=== PATIENT | male | born 1985 | race Caucasian/White ===

== ENCOUNTER 2022-05-06 10:48 | Outpatient (CLI) | payer OTHER ==
[2022-05-06 18:00] LABS: BASOPHILS % (AUTO) 0.4 %; EOSINOPHILS % (AUTO) 0.3 %; HCT - HEMATOCRIT 44.4 % (42.0-52.0); HGB - HEMOGLOBIN 14.9 g/dL (14.0-18.0); LYMPHOCYTES # (AUTO) 1.4 10^3/uL (1.5-3.5); LYMPHOCYTES % (AUTO) 17.6 %; MEAN CORPUSCULAR HEMOGLOBIN 30.8 pg (27.0-31.0); MEAN CORPUSCULAR HGB CONC 33.6 g/dL (32.0-36.0); MEAN CORPUSCULAR VOLUME 91.7 fL (80.0-94.0); MEAN PLATELET VOLUME 10.2 fL (7.4-11.4); MONOCYTES # (AUTO) 0.4 10^3/uL (0.0-1.0); MONOCYTES % (AUTO) 5.3 %; NEUTROPHILS % (AUTO) 76.1 %; PLT - PLATELET COUNT 318 10^3/uL (130-450); RED BLOOD COUNT 4.84 10^6/uL (4.70-6.10); WHITE BLOOD COUNT 7.8 x10^3/uL (4.8-10.8)
[2022-05-06 18:35] LABS: ALBUMIN 4.9 g/dL (3.2-5.5); ALBUMIN/GLOBULIN RATIO 2.3 (1.0-2.2); BILIRUBIN,TOTAL 0.7 mg/dL (0.2-1.0); CALCIUM 9.3 mg/dL (8.5-10.3); CREATININE 0.9 mg/dL (0.6-1.2); POTASSIUM 4.3 mmol/L (3.5-5.0)
[2022-05-06 18:44] LABS: THYROID STIMULATING HORMONE 0.47 uIU/mL (0.34-5.60)
[2022-05-06 23:12] LABS: CHLAMYDIA TRACHOMATIS DNA NEGATIVE (NEGATIVE); NEISSERIA GONORRHOEAE DNA NEGATIVE (NEGATIVE)
[2022-05-08 05:10] LABS: HCV AB <0.1 s/co ratio (0.0-0.9)
[2022-05-09 00:08] LABS: HIV SCREEN 4TH GENERATION Non Reactive (Non Reactive)
== END 2022-05-06 10:49 | disposition home or self-care (01) ==
LOC: LAB.N 10:48
PROVIDERS: ATTEND Registered Nurse
DX: Z11.3 Encounter for screening for infections with a predominantly sexual mode of transmission (principal); Z13.29 Encounter for screening for other suspected endocrine disorder; Z13.228 Encounter for screening for other metabolic disorders; Z13.0 Encounter for screening for diseases of the blood and blood-forming organs and certain disorders involving the immune mechanism
CPT/HCPCS: 36415; 80053; 84443; 85025; 86803; 87389; 87491; 87591; 87661

== ENCOUNTER 2022-07-05 06:23 | Day surgery (SDC) | payer OTHER ==
[~2022-07-05 06:23] MED LIST: CEFAZOLIN 2G/50ML 0.9% NS 2 GM/50 ML BAG IV ONE
[2022-07-05] MEDS ORDERED: LACTATED RINGERS 1,000 ML IV ONE ×2 (06:27→09:25)
--- NOTE | 2022-07-05 06:54 | ANESTHESIA ---
Pre-Anesthesia VS, & Labs - Diagnosis R inguinal hernia - Procedure open right inguinal hernia repair with mesh Vital Signs: Temp Pulse Resp BP Pulse Ox O2 Flow Rate 36.4 C L 64 16 116/63 98 07/05/22 06:27 07/05/22 06:27 07/05/22 06:27 07/05/22 06:27 07/05/22 06:27 Height: 6 ft Weight (kg): 84.6 kg Body Mass Index: 25.2 BMI Classification: Overweight - NPO >8 hours - Lab Results Lab results reviewed: Yes Home Medications and Allergies No Known Home Medications 11/06/18 Allergies/Adverse Reactions: Allergies Allergy/AdvReac Type Severity Reaction Status Date / Time iv contrast Allergy flushing, Uncoded 04/28/13 14:36 pain Anes History & Medical History - Anesthetic History Anesthesia Complications: reports: No previous complications Family history of Anesthesia Complications: Denies Family history of Malignant Hyperthermia: Denies - Medical History Cardiovascular: reports: None Pulmonary: reports: None Gastrointestinal: reports: None Urinary: reports: None Musculoskeletal: reports: Chronic back pain Endocrine/Autoimmune: reports: None Skin: reports: None Smoking Status: Never smoker - Surgical History Orthopedic: reports: ACL reconstruction, Rotator cuff repair Exam General: Alert, Oriented x3, Cooperative Dental: WNL Mouth Openin Fingerbreadth Neck Mobility: Normal Mallampati classification: II Thyromental Distance: 4-6 cm Respiratory: Lungs clear, Normal breath sounds, No respiratory distress Cardiovascular: Regular rate Neurological: Normal speech Mental/Cognitive Status: Alert/Oriented X3, Normal for patient Cognitive Status: Within normal limits Plan Anesthesia Type: General Consent for Procedure(s) Verified and Reviewed: Yes Code Status: Attempt Resuscitation ASA classification: 1-Healthy patient Is this case an emergency?: No
[2022-07-05] MEDS ORDERED: MIDAZOLAM 2 MG/2 ML VIAL ONE (07:04)
[2022-07-05] MEDS ORDERED: PROPOFOL 200 MG/20 ML VIAL IVP ONE (07:04)
[2022-07-05] MEDS ORDERED: BUPIVACAINE 0.5% PF 30 ML VIAL ONE (07:04)
[2022-07-05] MEDS ORDERED: fentaNYL 100 MCG/2 ML VIAL ONE ×2 (07:04→08:56)
[2022-07-05] MEDS ORDERED: LIDOCAINE-PF 2% 10 ML AMP SUBQ ONE (07:04)
[2022-07-05] MEDS ORDERED: NALOXONE 0.4 MG/ML VIAL IVP PRN (07:37)
[2022-07-05] MEDS ORDERED: MORPHINE 2 MG/ML CARPUJECT IVP PRN (07:37)
[2022-07-05] MEDS ORDERED: ATROPINE ABBOJECT 1 MG/10 ML SYRINGE IVP PRN (07:37)
[2022-07-05] MEDS ORDERED: ePHEDrine 50 MG/ML VIAL IVP PRN (07:37)
[2022-07-05] MEDS ORDERED: fentaNYL 100 MCG/2 ML VIAL IVP PRN (07:37)
[2022-07-05] MEDS ORDERED: HYDROmorphone 0.5 MG/0.5 ML SYRINGE IVP PRN ×2 (07:37→09:23)
[2022-07-05] MEDS ORDERED: ONDANSETRON 4 MG/2 ML VIAL IVP PRN ×2 (07:37→09:23)
[2022-07-05] MEDS ORDERED: METOCLOPRAMIDE 10 MG/2 ML VIAL IVP PRN (07:37)
[2022-07-05] MEDS ORDERED: DEXAMETHASONE 4 MG/ML VIAL ONE (07:52)
[2022-07-05] MEDS ORDERED: GLYCOPYRROLATE 1 MG/5 ML VIAL ONE (07:57)
[2022-07-05] MEDS ORDERED: LACTATED RINGERS 1,000 ML IV SCH (08:00)
[2022-07-05] MEDS ORDERED: BUPIVACAINE 0.5% PF 30 ML VIAL INFIL ONE (08:21)
[2022-07-05] MEDS ORDERED: KETOROLAC 30 MG/ML VIAL ONE (08:49)
[2022-07-05] MEDS ORDERED: SEVOFLURANE 250 ML LIQUID INH ONE (08:51)
[2022-07-05] MEDS ORDERED: HYDROcod/ACETAM 5/325 MG TABLET PO PRN (09:23)
--- NOTE | 2022-07-05 09:26 | OPERATIVE REPORT ---
Operative Report - General Procedure Date: 07/05/22 Planned Procedure: RIGHT inguinal herniorrhaphy Pre-Op Diagnosis: RIGHT inguinal hernia Procedure Performed: RIGHT indirect inguinal herniorrhaphy with mesh Post Op Diagnosis: RIGHT indirect inguinal hernia - Procedure Note Primary Surgeon: Ian Desai MD Anesthesia Provider: Gopi Aleman CRNA Anesthesia Technique: General LMA, Local (30 mL of half percent Marcaine) IV Fluids (mL): 700 Estimated Blood Loss (mL): 5 Drain/Tube Type: Other (None.) Findings: Moderate sized indirect inguinal hernia sac Complications: None. - Other Other Information/Narrative: After verbal and written informed consent was obtained detailing the operation, the alternatives the operation including no operation, risks of infection, bleeding requiring transfusion with its risks, nerve injury, and and after I met with the patient confirming the surgery and the site of surgery, the patient was brought to the operative suite and placed supine on the operating table. Great care was taken to avoid pressure points to prevent pressure necrosis or nerve injury. Monitoring devices were applied along with TEDs and pneumatic compression stockings (to prevent DVT). The patient received preoperative antibiotics for surgical prophylaxis. Gopi Aleman CRNA sedated and anesthetized the patient for the entire procedure. The patient was prepped and draped in the usual sterile manner. With the patient draped my initials were clearly visible. A "time in" then confirmed that the patient was identified with 3 identifiers (name, date, and medical record number), the history and physical was updated and in the chart, the signed consent confirming the procedure was in the chart, the patient was in the correct position, the aforementioned prophylactic measures were in place or given, we had the correct personnel and equipment to complete the procedure and that anesthesia and the surgical team were given an opportunity to express any concerns. With the agreement of everyone in the room we proceeded with the operation. A standard inguinal incision was made and dissection was carried down to the external oblique aponeurosis using a combination of Metzenbaum scissors and Bovie electrocautery. The external oblique aponeurosis was cleared of overlying adherent tissue, and the external ring was delineated. The external oblique was incised with a scalpel and this incision was carried down to the external ring using Metzenbaum scissors. Care was taken not to injure the ilioinguinal nerve. Having expose the inguinal canal, the cord structures were from the canal using blunt dissection and a [place] drain was placed around the cord structures at the level of the pubic tubercle. This Marjorie drain was then used to retract the cord structures as needed. Adherent cremasteric muscle was dissected free from the cord using Bovie electrocautery. The cord was then explored using a combination of sharp and blunt dissection, and an indirect sac was found. The sac was then dissected back to the internal ring and high ligated with a 3-0 Vicryl suture. This was then transected the stump cauterized and allowed to retract back into the abdomen. A Bard PerFix plug (reference#[id number], lot#[id number], use by 2027-02-08) was then inserted into the internal ring and secured to the edge of the internal ring using a 2-0 PDS. The PerFix onlay patch was then secured to the pubic tubercle with a 2 0-PDS U stitch. The mesh was then secured to the conjoined tendon superiorly using interrupted 2-0 PDS sutures and secured to the shelving edge of Poupart's ligament inferiorly using interrupted 2-0 PDS sutures. The mesh was secured around the cord structures loosely with a 2-0 PDS suture thus creating a new internal ring. The [place] drain was then removed. Meticulous hemostasis was obtained using Bovie electrocautery. The wound was then injected superficially and deep using 30 mL of half percent Marcaine. The incision the external oblique was approximated using 3-0 Vicryl in a running fashion thus reforming the external ring. The skin incision was approximated with 4-0 Monocryl in a subcuticular fashion. The skin was cleaned of its prep and Dermabond was applied. At this point a timeout was performed that confirmed that all counts were correct x2, the procedure that was performed, the blood loss, the IV fluids administered, the patient's condition, and any concerns of the operating team had. Having tolerated the procedure well, the patient was taken recovery room in good and stable condition. Gentle downward traction ensured the testes were well seated in the scrotum. The plan is for outpatient discharge when the patient is adequately recovered. CPT 05971 This document was created in part using voice recognition technology. Because of the inherent limitations of the system, occasional same sounding word substitutions and grammatical errors do occur and persist despite proofreading. Please read this document for content.
[2022-07-05 10:27] VITALS: BP 121/58
--- NOTE | 2022-07-05 12:45 | ANESTHESIA POST OP EVALUATION ---
Anesthesia Post Eval - Post Anesthesia Eval Vitals: Last Vital Signs Temp 36.4 C L 07/05/22 10:20 Pulse 74 07/05/22 10:20 Resp 14 07/05/22 10:20 BP 121/58 L 07/05/22 10:20 Pulse Ox 98 07/05/22 10:20 O2 Flow Rate CV Function Including HR & BP: Stable Pain Control: Satisfactory Nausea & Vomiting: Negative Mental Status: Baseline Respiratory Status: Airway Patent Hydration Status: Satisfactory Anesthesia Complications: None
== END 2022-07-05 06:24 | disposition home or self-care (01) ==
LOC: SDS 06:23
PROVIDERS: ATTEND Surgery
DX: K40.90 Unilateral inguinal hernia, without obstruction or gangrene, not specified as recurrent (principal)